=== PATIENT | male | born 1990 | race African-American/Black ===

== ENCOUNTER 2017-04-29 14:36 | Emergency (ER) | payer OTHER ==
[~2017-04-29] VITALS: Ht 188 cm; Wt 118.0 kg
[~2017-04-29 14:36] MED LIST: BENZ2 PO; HALO100P IM; HALO5 PO; METF500 PO
[2017-04-29 14:38] VITALS: BP 139/65; PULSE 98; RESP 20; TEMP 98.8; O2SAT 96
[2017-04-29] MEDS ORDERED: ALUMINUM/MAGNESIUM/SIMETH 30 ML CUP PO ONE (15:45)
[2017-04-29] MEDS ORDERED: LIDOCAINE VISCOUS 2% SOLN 15 ML UDC PO ONE (15:45)
[2017-04-29] MEDS ORDERED: SODIUM CHLORIDE 0.9% FLUSH 10 ML FLUSH IV FLUSH PRN (15:45)
--- NOTE | 2017-04-29 16:02 | PD ---
HPI Chief Complaint: Abdominal Pain Time Seen by Provider: 15:42 Travel History International Travel<30 days: No Contact w/Intl Traveler<30days: No Traveled to known affect area: No History of Present Illness HPI Patient is a 26-year-old male with history of bipolar disorder here with abdominal pain. Patient states that he has been drinking Slim fast over the course of the last several weeks and an attempt to lose weight. Patient complains of epigastric abdominal pain, achy in nature and radiates throughout the abdomen. Some associated nausea over the last 4 days. No vomiting. No fevers or chills. Bowel movements been regular. PFSH Past Medical History ADHD: Yes Bipolar Disorder: Yes Cardiovascular Problems: No Diabetes: Yes Patient Takes Glucophage: Yes Diminished Hearing: No Psychiatric: Yes (PSYCHOSIS) Immunizations Current: Yes Schizophrenia: Yes Tetanus Vaccination: Unknown PNEUMOCCOCAL Vaccine (Year): 3 Past Surgical History Surgical History: No Previous Surgery Other Surgery: No Social History Alcohol Use: No Tobacco Use: Yes Substance Use: No Allergies-Medications (Allergen,Severity, Reaction): Coded Allergies: No Known Allergies (Verified , 04/29/17) Reported Meds & Prescriptions Reported Meds & Active Scripts Active Review of Systems Except as stated in HPI: all other systems reviewed are Neg Physical Exam Narrative GENERAL: Well-appearing male in no acute distress SKIN: Focused skin assessment warm/dry. HEAD: Normocephalic. EYES: No scleral icterus. No injection or drainage. ENT: Mucous membranes pink and moist. NECK: Supple CARDIOVASCULAR: Regular rate and rhythm. RESPIRATORY: No accessory muscle use. GASTROINTESTINAL: Abdomen soft, mild epigastric tenderness to palpation without rebound or guarding, nondistended. Obese MUSCULOSKELETAL: Normal gait NEUROLOGICAL: Awake and alert. Normal speech. PSYCHIATRIC: Appropriate mood and affect; insight and judgment normal. Data Data Last Documented VS Vital Signs Date Time Temp Pulse Resp B/P Pulse Ox O2 Delivery O2 Flow Rate FiO2 04/29/17 16:36 96 04/29/17 14:38 98.8 98 20 139/65 Room Air Orders Complete Blood Count With Diff (04/29/17 15:45) Comprehensive Metabolic Panel (04/29/17 15:45) Lipase (04/29/17 15:45) Iv Access Insert/Monitor (04/29/17 15:45) Oximetry (04/29/17 15:45) Sodium Chloride 0.9% Flush (Ns Flush) (04/29/17 15:45) Al-Mag Hy-Si 40-40-4 Mg/Ml Liq (Mag-Al P (04/29/17 15:45) Lidocaine 2% Viscous (Xylocaine 2% Visco (04/29/17 15:45) Labs Laboratory Tests Test 04/29/17 15:15 White Blood Count 9.9 TH/MM3 Red Blood Count 5.25 MIL/MM3 Hemoglobin 16.2 GM/DL Hematocrit 48.7 % Mean Corpuscular Volume 92.8 FL Mean Corpuscular Hemoglobin 30.9 PG Mean Corpuscular Hemoglobin 33.3 % Concent Red Cell Distribution Width 12.9 % Platelet Count 282 TH/MM3 Mean Platelet Volume 7.7 FL Neutrophils (%) (Auto) 65.9 % Lymphocytes (%) (Auto) 23.0 % Monocytes (%) (Auto) 9.4 % Eosinophils (%) (Auto) 1.3 % Basophils (%) (Auto) 0.4 % Neutrophils # (Auto) 6.5 TH/MM3 Lymphocytes # (Auto) 2.3 TH/MM3 Monocytes # (Auto) 0.9 TH/MM3 Eosinophils # (Auto) 0.1 TH/MM3 Basophils # (Auto) 0.0 TH/MM3 CBC Comment DIFF FINAL Differential Comment Sodium Level 142 MEQ/L Potassium Level 4.5 MEQ/L Chloride Level 106 MEQ/L Carbon Dioxide Level 31.5 MEQ/L Anion Gap 5 MEQ/L Blood Urea Nitrogen 13 MG/DL Creatinine 1.33 MG/DL Estimat Glomerular Filtration 79 ML/MIN Rate Random Glucose 82 MG/DL Calcium Level 8.9 MG/DL Total Bilirubin 0.4 MG/DL Aspartate Amino Transf 25 U/L (AST/SGOT) Alanine Aminotransferase 34 U/L (ALT/SGPT) Alkaline Phosphatase 85 U/L Total Protein 7.7 GM/DL Albumin 4.1 GM/DL Lipase 208 U/L [facility] Medical Decision Making Medical Screen Exam Complete: Yes Emergency Medical Condition: Yes Medical Record Reviewed: Yes Differential Diagnosis 26-year-old male with history of bipolar disorder here with one week of epigastric abdominal pain in 4 days of nausea since drinking Slim fast in the diet attempt. Differential includes gastritis, peptic ulcer disease, pancreatitis, hepatobiliary pathology and less likely peritoneal pathology, bowel obstruction given his overall benign abdominal examination. Narrative Course Patient placed on monitor, IV established and blood obtained. Given GI cocktail. CBC, CMP, lipase unremarkable. Patient reassured and will be discharged home with antacid for gastritis Diagnosis Primary Impression: Gastritis Qualified Code: K29.00 - Acute gastritis without hemorrhage, unspecified gastritis type Referrals: Primary Care Physician as needed Additional Instructions: Antacid as prescribed. Follow-up with primary care provider if symptoms persist. Med/Other Pt SpecificInfo: Prescription(s) given Scripts Omeprazole 40 Mg Cap40 Mg PO DAILY #30 CAP Ref 0 Prov:Yamilet Madrid MD 04/29/17 Disposition: 01 DISCHARGE HOME Condition: Stable Yamilet Madrid MD Apr 29, 2017 16:02
[2017-04-29 16:28] LABS: AUTOMATED NEUTROPHIL # 6.5 TH/MM3 (1.8-7.7); BASOPHIL % 0.4 % (0.0-2.0); EOSINOPHIL # 0.1 TH/MM3 (0-0.4); EOSINOPHIL % 1.3 % (0.0-4.0); HEMATOCRIT 48.7 % (39.0-51.0); HEMO FLAGS DIFF FINAL; LYMPHOCYTE # 2.3 TH/MM3 (1.0-4.8); MEAN CELL VOLUME 92.8 FL (80.0-100.0); MEAN CORPUSCULAR HEMOGLOBIN 30.9 PG (27.0-34.0); MEAN CORPUSCULAR HGB CONC 33.3 % (32.0-36.0); MONO % 9.4 % (0.0-8.0); NEUT % 65.9 % (16.0-70.0); PLATELET COUNT 282 TH/MM3 (150-450); RED BLOOD COUNT 5.25 MIL/MM3 (4.50-5.90); RED CELL DISTRIBUTION WIDTH 12.9 % (11.6-17.2); WHITE BLOOD COUNT 9.9 TH/MM3 (4.0-11.0)
[2017-04-29 16:36] VITALS: O2SAT 96
[2017-04-29 16:45] LABS: ALT (GPT) 34 U/L (12-78); ANION GAP 5 MEQ/L (5-15); AST (GOT) 25 U/L (15-37); BICARBONATE 31.5 MEQ/L (21.0-32.0); BLOOD UREA NITROGEN 13 MG/DL (7-18); CHLORIDE 106 MEQ/L (98-107); GLOMERULAR FILTRATION RATE 79 ML/MIN (>89); POTASSIUM 4.5 MEQ/L (3.5-5.1); SODIUM (NA) 142 MEQ/L (136-145)
[2017-04-29 16:46] LABS: ALKALINE PHOSPHATASE 85 U/L (45-117); TOTAL BILIRUBIN ADULT 0.4 MG/DL (0.2-1.0)
[2017-04-29] MEDS ORDERED: OMEP40CA2 PO (16:48)
== END 2017-04-29 17:28 | disposition home or self-care (01) ==
LOC: NEPD 14:36
DX: K29.00 Acute gastritis without bleeding (principal)
CPT/HCPCS: 80053; 83690; 85025; 99283

== ENCOUNTER 2017-07-24 07:01 | Emergency (ER) | payer OTHER ==
[~2017-07-24] VITALS: Ht 182.9 cm; Wt 120.0 kg
[2017-07-24 07:01] VITALS: BP 129/71; PULSE 76; RESP 17; TEMP 97.8; O2SAT 98
[~2017-07-24 07:01] MED LIST changes: -BENZ2 PO; -HALO100P IM; -HALO5 PO; -METF500 PO; +OMEP40CA2 PO
[2017-07-24] MEDS ORDERED: HALO2TAB PO (07:17)
[2017-07-24] MEDS ORDERED: ZIPR40 PO (07:17)
[2017-07-24] MEDS ORDERED: PANTOPRAZOLE SODIUM 40 MG VIAL IV PUSH ONE (07:30)
[2017-07-24] MEDS ORDERED: SODIUM CHLOR 0.9% 1000 ML INJ 1,000 ML IV ONE ×2 (07:30)
[2017-07-24] MEDS ORDERED: SODIUM CHLORIDE 0.9% FLUSH 10 ML FLUSH IVF PRN (07:30)
[2017-07-24 07:31] VITALS: BP_SYST 118; BP_SYST 131; BP_DIAS 69; BP_DIAS 87; PULSE 76; RESP 17; RESP 18; O2SAT 98
--- NOTE | 2017-07-24 07:58 | PD ---
HPI Chief Complaint: Cardiac Complaint Time Seen by Provider: 07:03 Travel History International Travel<30 days: No Contact w/Intl Traveler<30days: No Traveled to known affect area: No History of Present Illness HPI 27 year old male came to the emergency room brought by EMS for vomiting, diarrhea, chest and epigastric pain all of which started this morning. Patient drank a lot of alcohol last night as per him. He took his psych medications and had beer because he wanted to sleep. No history of overdose. He was not feeling well when he called EMS. Currently he is groggy but answering questions appropriately. Vital signs are within acceptable limits. Patient says he vomited once in his mouth. Had 1 episode of large diarrhea. No aggravating or relieving factors to his pain. He points to the epigastric and substernal area for the pain. No cardiac history in the past. Patient smokes cigarettes. He denied doing any drugs. [facility] Past Medical History Narrative Medical List of his past medical, surgical, social and family history is reviewed from the nursing note. ADHD: Yes Bipolar Disorder: Yes Anxiety: Yes Cardiovascular Problems: No Diabetes: Yes Diminished Hearing: No Psychiatric: Yes (PSYCHOSIS) Immunizations Current: Yes Schizophrenia: Yes Tetanus Vaccination: > 5 Years Influenza Vaccination: No PNEUMOCCOCAL Vaccine (Year): 3 Past Surgical History Other Surgery: No Social History Alcohol Use: Yes (OCASSIONALLY ) Tobacco Use: Yes Substance Use: No (PT DENIES ) Allergies-Medications (Allergen,Severity, Reaction): Coded Allergies: No Known Allergies (Verified , 07/24/17) Comments No known drug allergies. Reported Meds & Prescriptions Reported Meds & Active Scripts Active Reported Geodon (Ziprasidone) 40 Mg Cap 40 Mg PO DAILY Haloperidol 2 Mg Tab 2 Mg PO BID Narrative Medication List of his home medications reviewed from the nursing note. Review of Systems Except as stated in HPI: all other systems reviewed are Neg Physical Exam Narrative GENERAL: Groggy, lethargic, oriented 3, slurred speech, moderate distress SKIN: Focused skin assessment warm/dry. HEAD: Atraumatic. Normocephalic. EYES: Pupils equal and round. No scleral icterus. No injection or drainage. ENT: No nasal bleeding or discharge. Dry mucous mental NECK: Trachea midline. No JVD. CARDIOVASCULAR: Regular rate and rhythm. No murmur appreciated. RESPIRATORY: No accessory muscle use. Clear to auscultation. Breath sounds equal bilaterally. GASTROINTESTINAL: Abdomen soft, epigastric tenderness, nondistended. Hepatic and splenic margins not palpable. MUSCULOSKELETAL: No obvious deformities. No clubbing. No cyanosis. No edema. NEUROLOGICAL: Awake and alert. No obvious cranial nerve deficits. Motor grossly within normal limits. Normal speech. PSYCHIATRIC: Appropriate mood and affect; insight and judgment normal. Data Data Last Documented VS Orders Orders Electrocardiogram (07/24/17 07:29) Ckmb (Isoenzyme) Profile (07/24/17 07:29) Complete Blood Count With Diff (07/24/17 07:29) Comprehensive Metabolic Panel (07/24/17:29) Magnesium (Mg) (07/24/17:29) Prothrombin Time / Inr (Pt) (07/24/17 07:29) Troponin I (07/24/17 07:29) Lipase (07/24/17 07:29) Chest, Single Ap (07/24/17:29) Ecg Monitoring (07/24/17:29) Bilateral Bp Monitoring (07/24/17 07:29) Iv Access Insert/Monitor (07/24/17 07:29) Oximetry (07/24/17 07:29) Oxygen Administration (07/24/17 07:29) Sodium Chloride 0.9% Flush (Ns Flush) (07/24/17 07:30) Sodium Chlor 0.9% 1000 Ml Inj (Ns 1000 M (07/24/17 07:30) Sodium Chlor 0.9% 1000 Ml Inj (Ns 1000 M (07/24/17 07:30) Pantoprazole Inj (Protonix Inj) (07/24/17 07:30) Alcohol (Ethanol) (07/24/17 07:29) CKMB (07/24/17 07:35) CKMB% (07/24/17 07:35) Labs Laboratory Tests Test 07/24/17 07:35 White Blood Count 6.7 TH/MM3 Red Blood Count 5.30 MIL/MM3 Hemoglobin 16.9 GM/DL Hematocrit 49.6 % Mean Corpuscular Volume 93.7 FL Mean Corpuscular Hemoglobin 31.8 PG Mean Corpuscular Hemoglobin Concent 34.0 % Red Cell Distribution Width 13.0 % Platelet Count 249 TH/MM3 Mean Platelet Volume 7.9 FL Neutrophils (%) (Auto) 54.3 % Lymphocytes (%) (Auto) 34.0 % Monocytes (%) (Auto) 9.0 % Eosinophils (%) (Auto) 2.1 % Basophils (%) (Auto) 0.6 % Neutrophils # (Auto) 3.6 TH/MM3 Lymphocytes # (Auto) 2.3 TH/MM3 Monocytes # (Auto) 0.6 TH/MM3 Eosinophils # (Auto) 0.1 TH/MM3 Basophils # (Auto) 0.0 TH/MM3 CBC Comment DIFF FINAL Differential Comment Prothrombin Time 11.8 SEC Prothromb Time International Ratio 1.1 RATIO Blood Urea Nitrogen 8 MG/DL Creatinine 0.97 MG/DL Random Glucose 103 MG/DL Total Protein 7.1 GM/DL Albumin 3.5 GM/DL Calcium Level 8.6 MG/DL Magnesium Level 2.3 MG/DL Alkaline Phosphatase 79 U/L Aspartate Amino Transf (AST/SGOT) 14 U/L Alanine Aminotransferase (ALT/SGPT) 21 U/L Total Bilirubin 0.2 MG/DL Sodium Level 144 MEQ/L Potassium Level 3.6 MEQ/L Chloride Level 110 MEQ/L Carbon Dioxide Level 25.1 MEQ/L Anion Gap 9 MEQ/L Estimat Glomerular Filtration Rate 113 ML/MIN Total Creatine Kinase 255 U/L Creatine Kinase MB 1.8 NG/ML Troponin I LESS THAN 0.02 NG/ML Lipase 127 U/L Ethyl Alcohol Level LESS THAN 3 MG/DL MDM Medical Decision Making Medical Screen Exam Complete: Yes Emergency Medical Condition: Yes Medical Record Reviewed: Yes Interpretation(s) Twelve-lead EKG was reviewed by me. Normal sinus rhythm, normal axis, nonspecific ST-T wave changes. Heart rate of 78 bpm. Differential Diagnosis ACS, acute pancreatitis, alcoholic gastritis, dehydration Narrative Course 8:14 AM CBC is back and within acceptable limits. I ordered 2 L of IV fluid bolus since patient looked quite dehydrated. I've also ordered IV Protonix. I am little concerned of the fact that he is both on Geodon and Haldol. I'll discuss this with her psychiatrist. 8:43 AM I was just told by the nurse that patient pulled out his IV and left. Patient is not in the room. I did not get a chance to speak with him. However blood test results are back and they are all within normal limit. Interestingly his alcohol level is 0. Procedures EKG Prior to Arrival: No Diagnosis Primary Impression: Gastritis Qualified Codes: K29.20 - Alcoholic gastritis without bleeding Additional Impression: Chest pain Qualified Codes: R07.9 - Chest pain, unspecified Disposition: 07 AGAINST MEDICAL ADVICE Condition: Serious Dereje Johnson MD Jul 24, 2017 07:58
[2017-07-24 08:02] LABS: AUTOMATED NEUTROPHIL # 3.6 TH/MM3 (1.8-7.7); BASOPHIL % 0.6 % (0.0-2.0); EOSINOPHIL # 0.1 TH/MM3 (0-0.4); EOSINOPHIL % 2.1 % (0.0-4.0); HEMATOCRIT 49.6 % (39.0-51.0); HEMO FLAGS DIFF FINAL; LYMPHOCYTE # 2.3 TH/MM3 (1.0-4.8); MEAN CELL VOLUME 93.7 FL (80.0-100.0); MEAN CORPUSCULAR HEMOGLOBIN 31.8 PG (27.0-34.0); NEUT % 54.3 % (16.0-70.0); PLATELET COUNT 249 TH/MM3 (150-450); WHITE BLOOD COUNT 6.7 TH/MM3 (4.0-11.0)
[2017-07-24 08:08] LABS: INTERNATIONAL NORMALIZED RATIO 1.1 RATIO; PROTHROMBIN TIME - PATIENT 11.8 SEC (9.8-11.6)
[2017-07-24 08:27] LABS: ALKALINE PHOSPHATASE 79 U/L (45-117); ALT (GPT) 21 U/L (12-78); ANION GAP 9 MEQ/L (5-15); AST (GOT) 14 U/L (15-37); BICARBONATE 25.1 MEQ/L (21.0-32.0); BLOOD UREA NITROGEN 8 MG/DL (7-18); CHLORIDE 110 MEQ/L (98-107); CREATINE KINASE 255 U/L (39-308); GLOMERULAR FILTRATION RATE 113 ML/MIN (>89); MAGNESIUM 2.3 MG/DL (1.5-2.5); POTASSIUM 3.6 MEQ/L (3.5-5.1); SODIUM (NA) 144 MEQ/L (136-145); TOTAL BILIRUBIN ADULT 0.2 MG/DL (0.2-1.0)
[2017-07-24 08:29] LABS: ALCOHOL LESS THAN 3 MG/DL (0-5)
[2017-07-24 08:41] LABS: CKMB 1.8 NG/ML (0.5-3.6)
--- NOTE | 2017-07-24 09:45 | RADRPT ---
EXAM DATE/TIME: 07/24/2017 07:46 [facility] COMPARISON: No previous studies available for comparison. INDICATIONS : Midsternal chest pains radiating into left chest wall. Nausea, vomiting, diarrhea x1 day. MEDICAL HISTORY : None. SURGICAL HISTORY : None. ENCOUNTER: Initial ACUITY: 2 days PAIN SCORE: 9/10 LOCATION: Left chest FINDINGS: A single view of the chest demonstrates the lungs to be symmetrically aerated without evidence of mas s, infiltrate or effusion. The cardiomediastinal contours are unremarkable. Osseous structures are intact. CONCLUSION: Normal examination. Sadiq Polanco MD on July 24, 2017 at 9:43 Board Certified Radiologist. This report was verified electronically.
--- NOTE | 2017-07-24 12:57 | EKG ---
Date Performed: 07/24/2017 Time Performed: 07:07:21 PTAGE: 27 years EKG: Normal Sinus rhythm Normal ECG PREVIOUS TRACING : 10/23/2015 00.09 Compared to prior tracing no significant change DOCTOR: Mikael Serrano Interpretating Date/Time 07/24/2017 12:55:28
== END 2017-07-24 08:50 | disposition left against medical advice (07) ==
LOC: NEPE 07:01
DX: K29.70 Gastritis, unspecified, without bleeding (principal); R07.9 Chest pain, unspecified; E11.9 Type 2 diabetes mellitus without complications
CPT/HCPCS: 71010; 80053; 80307; 82550; 82552; 83690; 83735; 84484; 85025; 85610; 93005; 96361; 96374; 99284; C9113; J7030

== ENCOUNTER 2017-08-18 03:34 | Emergency (ER) | payer OTHER ==
[~2017-08-18] VITALS: Ht 182.9 cm; Wt 120.0 kg
[~2017-08-18 03:34] MED LIST changes: +HALO2TAB PO; -OMEP40CA2 PO; +ZIPR40 PO
[2017-08-18 03:43] VITALS: BP 174/103; PULSE 110; RESP 15; TEMP 97.8; O2SAT 99
[2017-08-18] MEDS ORDERED: ALPRAZolam 0.5 MG TAB PO ONE (04:30)
--- NOTE | 2017-08-18 04:45 | PD ---
HPI Chief Complaint: Medical Clearance Time Seen by Provider: 04:29 Travel History International Travel<30 days: No Contact w/Intl Traveler<30days: No Traveled to known affect area: No History of Present Illness HPI Patient is a 27-year-old male presents to the emergency room for evaluation of anxiety, panic disorder. He states that he drinks 6 red bulls prior to arrival because he's trying to keep himself awake because she has bad dreams when he falls asleep. He reports hallucinations, he reports a history of schizophrenia , bipolar disorder, anxiety and depression. He reports feeling homicidal. He states he feels that way when somebody disrespected him. He denies any chest pain, palpitations, headaches, shortness of breath. PFSH Past Medical History ADHD: Yes Bipolar Disorder: Yes Anxiety: Yes Cardiovascular Problems: No Diabetes: Yes Diminished Hearing: No Psychiatric: Yes (PSYCHOSIS) Immunizations Current: Yes Schizophrenia: Yes PNEUMOCCOCAL Vaccine (Year): 3 Past Surgical History Other Surgery: No Social History Alcohol Use: Yes (OCASSIONALLY ) Tobacco Use: Yes Substance Use: No (PT DENIES ) Allergies-Medications (Allergen,Severity, Reaction): Coded Allergies: No Known Allergies (Verified , 08/18/17) Reported Meds & Prescriptions Reported Meds & Active Scripts Active Reported Geodon (Ziprasidone) 40 Mg Cap 40 Mg PO DAILY Haloperidol 2 Mg Tab 2 Mg PO BID Review of Systems Except as stated in HPI: all other systems reviewed are Neg Psychiatric: Positive: Anxiety, Mood Disorder, Homicidal Ideation Physical Exam Narrative GENERAL: Well developed, well-nourished, alert male. Appears very animated jumpy. SKIN: Warm and dry. HEAD: Atraumatic. Normocephalic. EYES: Pupils equal and round. No scleral icterus. No injection or drainage. ENT: No nasal bleeding or discharge. Mucous membranes pink and moist. NECK: Trachea midline. No JVD. CARDIOVASCULAR: Mildly tachycardic RESPIRATORY: No accessory muscle use. Clear to auscultation. Breath sounds equal bilaterally. GASTROINTESTINAL: Abdomen soft, non-tender, nondistended. Hepatic and splenic margins not palpable. MUSCULOSKELETAL: Extremities without clubbing, cyanosis, or edema. No obvious deformities. NEUROLOGICAL: Awake and alert. No obvious cranial nerve deficits. Motor grossly within normal limits. Five out of 5 muscle strength in the arms and legs. Normal speech. PSYCHIATRIC: Appropriate mood and affect; insight and judgment normal. Data Data Last Documented VS Vital Signs Date Time Temp Pulse Resp B/P (MAP) Pulse Ox O2 Delivery O2 Flow Rate FiO2 08/18/17 03:43 97.8 110 15 174/103 (126) 99 Room Air Orders Orders Complete Blood Count With Diff (08/18/17 04:29) Comprehensive Metabolic Panel (08/18/17 04:29) Psych Screen (08/18/17 04:29) Drug Screen, Random Urine (08/18/17 04:29) Alcohol (Ethanol) (08/18/17 04:29) Salicylates (Aspirin) (08/18/17 04:29) Tylenol (Acetaminophen) (08/18/17 04:29) Alprazolam (Xanax) (08/18/17 04:30) Labs Laboratory Tests Test 08/18/17 04:46 08/18/17 05:20 White Blood Count 10.8 TH/MM3 Red Blood Count 5.09 MIL/MM3 Hemoglobin 16.4 GM/DL Hematocrit 46.8 % Mean Corpuscular Volume 91.8 FL Mean Corpuscular Hemoglobin 32.1 PG Mean Corpuscular Hemoglobin Concent 35.0 % Red Cell Distribution Width 13.1 % Platelet Count 240 TH/MM3 Mean Platelet Volume 7.3 FL Neutrophils (%) (Auto) 68.5 % Lymphocytes (%) (Auto) 18.4 % Monocytes (%) (Auto) 11.4 % Eosinophils (%) (Auto) 0.9 % Basophils (%) (Auto) 0.8 % Neutrophils # (Auto) 7.4 TH/MM3 Lymphocytes # (Auto) 2.0 TH/MM3 Monocytes # (Auto) 1.2 TH/MM3 Eosinophils # (Auto) 0.1 TH/MM3 Basophils # (Auto) 0.1 TH/MM3 CBC Comment DIFF FINAL Differential Comment Blood Urea Nitrogen 11 MG/DL Creatinine 1.10 MG/DL Random Glucose 98 MG/DL Total Protein 8.0 GM/DL Albumin 4.2 GM/DL Calcium Level 8.9 MG/DL Alkaline Phosphatase 87 U/L Aspartate Amino Transf (AST/SGOT) 51 U/L Alanine Aminotransferase (ALT/SGPT) 35 U/L Total Bilirubin 0.5 MG/DL Sodium Level 138 MEQ/L Potassium Level 3.4 MEQ/L Chloride Level 105 MEQ/L Carbon Dioxide Level 24.1 MEQ/L Anion Gap 9 MEQ/L Estimat Glomerular Filtration Rate 98 ML/MIN Salicylates Level 4.5 MG/DL Acetaminophen Level LESS THAN 2.0 MCG/ML Ethyl Alcohol Level LESS THAN 3 MG/DL Urine Opiates Screen NEG Urine Barbiturates Screen NEG Urine Amphetamines Screen NEG Urine Benzodiazepines Screen NEG Urine Cocaine Screen NEG Urine Cannabinoids Screen NEG MDM Medical Decision Making Medical Screen Exam Complete: Yes Emergency Medical Condition: Yes Interpretation(s) Vital Signs Date Time Temp Pulse Resp B/P (MAP) Pulse Ox O2 Delivery O2 Flow Rate FiO2 08/18/17 03:43 97.8 110 15 174/103 (126) 99 Room Air Differential Diagnosis Mood disorder versus substance abuse versus malingering versus metabolic abnormality versus other Narrative Course Patient is a 27-year-old male that presented to emergency department for psychiatric evaluation due to his anxiety and panic attacks. He appears very animated, easily excitable. Patient is mildly tachycardic, likely secondary to the red bulls he has been drinking. Mental health screening discussed with the patient. Psychiatric screen ordered. Labs reviewed, no acute abnormalities identified. Patient is medically cleared for psychiatric evaluation at this time. Diagnosis Primary Impression: Encounter for medical screening examination Condition: Stable Stephania Mason Aug 18, 2017 04:45
[2017-08-18 05:01] LABS: AUTOMATED NEUTROPHIL # 7.4 TH/MM3 (1.8-7.7); BASOPHIL # 0.1 TH/MM3 (0-0.2); BASOPHIL % 0.8 % (0.0-2.0); EOSINOPHIL # 0.1 TH/MM3 (0-0.4); EOSINOPHIL % 0.9 % (0.0-4.0); HEMATOCRIT 46.8 % (39.0-51.0); HEMOGLOBIN 16.4 GM/DL (13.0-17.0); LYMPH % 18.4 % (9.0-44.0); MEAN CELL VOLUME 91.8 FL (80.0-100.0); MEAN CORPUSCULAR HEMOGLOBIN 32.1 PG (27.0-34.0); MEAN PLATELET VOLUME 7.3 FL (7.0-11.0); MONO % 11.4 % (0.0-8.0); MONOCYTE # 1.2 TH/MM3 (0-0.9); NEUT % 68.5 % (16.0-70.0); PLATELET COUNT 240 TH/MM3 (150-450); RED BLOOD COUNT 5.09 MIL/MM3 (4.50-5.90); RED CELL DISTRIBUTION WIDTH 13.1 % (11.6-17.2); WHITE BLOOD COUNT 10.8 TH/MM3 (4.0-11.0)
[2017-08-18 05:30] LABS: ALBUMIN 4.2 GM/DL (3.4-5.0); ALT (GPT) 35 U/L (12-78); AST (GOT) 51 U/L (15-37); BICARBONATE 24.1 MEQ/L (21.0-32.0); BLOOD UREA NITROGEN 11 MG/DL (7-18); CALCIUM 8.9 MG/DL (8.5-10.1); CHLORIDE 105 MEQ/L (98-107); GLOMERULAR FILTRATION RATE 98 ML/MIN (>89); GLUCOSE,RANDOM 98 MG/DL (74-106); SODIUM (NA) 138 MEQ/L (136-145)
[2017-08-18 05:32] LABS: ALKALINE PHOSPHATASE 87 U/L (45-117); TOTAL BILIRUBIN ADULT 0.5 MG/DL (0.2-1.0)
[2017-08-18 05:33] LABS: ACETAMINOPHEN LESS THAN 2.0 MCG/ML (10.0-30.0)
--- NOTE | 2017-08-18 09:42 | PD ---
Data Data Last Documented VS Vital Signs Date Time Temp Pulse Resp B/P (MAP) Pulse Ox O2 Delivery O2 Flow Rate FiO2 08/18/17 08:50 08/18/17 03:43 97.8 110 15 99 Room Air Orders Orders Complete Blood Count With Diff (08/18/17 04:29) Comprehensive Metabolic Panel (08/18/17 04:29) Psych Screen (08/18/17 04:29) Drug Screen, Random Urine (08/18/17 04:29) Alcohol (Ethanol) (08/18/17 04:29) Salicylates (Aspirin) (08/18/17 04:29) Tylenol (Acetaminophen) (08/18/17 04:29) Alprazolam (Xanax) (08/18/17 04:30) Diet Regular Basic (08/18/17 Breakfast) Ed Discharge Order (08/18/17 09:40) Labs Laboratory Tests Test 08/18/17 04:46 08/18/17 05:20 White Blood Count 10.8 TH/MM3 Red Blood Count 5.09 MIL/MM3 Hemoglobin 16.4 GM/DL Hematocrit 46.8 % Mean Corpuscular Volume 91.8 FL Mean Corpuscular Hemoglobin 32.1 PG Mean Corpuscular Hemoglobin Concent 35.0 % Red Cell Distribution Width 13.1 % Platelet Count 240 TH/MM3 Mean Platelet Volume 7.3 FL Neutrophils (%) (Auto) 68.5 % Lymphocytes (%) (Auto) 18.4 % Monocytes (%) (Auto) 11.4 % Eosinophils (%) (Auto) 0.9 % Basophils (%) (Auto) 0.8 % Neutrophils # (Auto) 7.4 TH/MM3 Lymphocytes # (Auto) 2.0 TH/MM3 Monocytes # (Auto) 1.2 TH/MM3 Eosinophils # (Auto) 0.1 TH/MM3 Basophils # (Auto) 0.1 TH/MM3 CBC Comment DIFF FINAL Differential Comment Blood Urea Nitrogen 11 MG/DL Creatinine 1.10 MG/DL Random Glucose 98 MG/DL Total Protein 8.0 GM/DL Albumin 4.2 GM/DL Calcium Level 8.9 MG/DL Alkaline Phosphatase 87 U/L Aspartate Amino Transf (AST/SGOT) 51 U/L Alanine Aminotransferase (ALT/SGPT) 35 U/L Total Bilirubin 0.5 MG/DL Sodium Level 138 MEQ/L Potassium Level 3.4 MEQ/L Chloride Level 105 MEQ/L Carbon Dioxide Level 24.1 MEQ/L Anion Gap 9 MEQ/L Estimat Glomerular Filtration Rate 98 ML/MIN Salicylates Level 4.5 MG/DL Acetaminophen Level LESS THAN 2.0 MCG/ML Ethyl Alcohol Level LESS THAN 3 MG/DL Urine Opiates Screen NEG Urine Barbiturates Screen NEG Urine Amphetamines Screen NEG Urine Benzodiazepines Screen NEG Urine Cocaine Screen NEG Urine Cannabinoids Screen NEG MDM Supervised Visit with FLOR: Yes Narrative Course I did not participate in care of patient, patient had already been discharged and has left the ER prior to my shift, I was asked to place an "ED Discharge" order. Diagnosis Primary Impression: Encounter for medical screening examination Patient Instructions: General Instructions Departure Forms: Tests/Procedures Disposition: 01 DISCHARGE HOME Condition: Stable Vicenta Blanco DO Aug 18, 2017 09:42
== END 2017-08-18 09:46 | disposition home or self-care (01) ==
LOC: NEPD 03:34
DX: F41.0 Panic disorder [episodic paroxysmal anxiety] (principal); F20.9 Schizophrenia, unspecified; F31.9 Bipolar disorder, unspecified; Z72.0 Tobacco use; Z79.899 Other long term (current) drug therapy
CPT/HCPCS: 80053; 80307; 85025; 99283